=== PATIENT | female | born 1955 | race Asian ===

== ENCOUNTER 2017-03-19 06:07 | Inpatient (IN) | payer OTHER ==
[~2017-03-19] VITALS: Ht 170.2 cm; Wt 74.8 kg
[~2017-03-19 06:07] MED LIST: ASPI-605 PO; ATEN50TA PO; BLOO-668 IN; CALC600T12 PO; FISH12002 PO; GLYB5TAB7 PO; HYDR-3652 PO; IBUP200C5 PO; LISI10TA5 PO; METF850T2 PO; NPH,100V SQ; SIMV10TA6 PO; VITA150T PO
[2017-03-19] MEDS ORDERED: KETOROLAC TROMETHAMINE INJ 30 MG/ML VIAL ONE (06:46)
[2017-03-19] MEDS ORDERED: BACITRACIN 50000 UNITS/VIAL ONE (06:47)
[2017-03-19] MEDS ORDERED: BUPIVACAINE MPF 0.5% W/EPI INJ 30 ML VIAL ONE (06:47)
[2017-03-19] MEDS ORDERED: IV LR 1000 ML 1,000 ML ONE ×2 (06:54→10:01)
[2017-03-19] MEDS ORDERED: NEEDLELESS EST SET LARGE BORE 1 EA INFUS.SET MC ONE (06:55)
[2017-03-19] MEDS ORDERED: SECONDARY IV SET 1 EA INFUS.SET MC ONE ×2 (06:55→14:40)
[2017-03-19] MEDS ORDERED: CEFAZOLIN SODIUM/DEXTROSE,ISO 50 ML IV ONE (06:55)
[2017-03-19] MEDS ORDERED: IV SET PRIMARY 1 EA INFUS.SET MC ONE (06:55)
[2017-03-19] MEDS ORDERED: TRANEXAMIC ACID 3,000 MG in SODIUM CHLORIDE IRRIG SOLUTION 70 ML IR ONE (07:30)
[2017-03-19] MEDS ORDERED: MIDAZOLAM HCL 2 MG/2ML VIAL ONE (08:21)
[2017-03-19] MEDS ORDERED: SUCCINYLCHOLINE CHLORIDE 20 MG/ML VIAL ONE (08:21)
[2017-03-19] MEDS ORDERED: FENTANYL PF 100MCG/2ML AMPUL ONE ×2 (08:21→10:11)
[2017-03-19] MEDS ORDERED: VECURONIUM 10 MG VIAL ONE (08:21)
[2017-03-19 08:33] VITALS: BP 131/72
[2017-03-19] MEDS ORDERED: HYDROMORPHONE INJ 2 MG/ML DISP.SYRIN ONE (09:49)
--- NOTE | 2017-03-19 10:45 | NUR ---
RN OPENING NOTES RECEIVED PATIENT ARRIVED IN [facility] FROM OPERATION ROOM. HEAD OF BED ELEVATED, NO SOB OR DISTRESS NOTED. ALERT AND ORIENTED TIMES 4, VERBALLY RESPONSIVE AND AND ABLE TO MAKE NEEDS KNOWN. IV INTACT AND PATENT. KEPT PATIENT CLEAN AND COMFORTABLE IN BED, CALL LIGHT WITHIN PATIENT REACH. WILL CONTINUE TO MONITOR ACCORDINGLY
[2017-03-19] MEDS ORDERED: BISACODYL SUPP (10 MG) 10 MG/SUPP.RECT SUPP.RECT RC PRN (11:30)
[2017-03-19] MEDS ORDERED: ZOLPIDEM TARTRATE 5 MG TABLET PO PRN (11:30)
[2017-03-19] MEDS ORDERED: SENNOSIDES 8.6 MG TABLET PO PRN (11:30)
[2017-03-19] MEDS ORDERED: ONDANSETRON HCL/PF 4 MG/2 ML VIAL IV PRN (11:30)
[2017-03-19] MEDS ORDERED: MORPHINE SULFATE INJ 2 MG/ML DISP.SYRIN IV PRN (11:30)
[2017-03-19] MEDS: HYDROCODONE/APAP 5/325MG 1 EACH TABLET PO PRN (11:36)
[2017-03-19] MEDS ORDERED: IV SET PRIMARY PUMP SET 1 EA INFUS.SET MC ONE ×2 (14:47→16:23)
[2017-03-19 14:56] LABS: EOSINOPHILS % (AUTO) 0.1 % (0.0-6.0); HEMATOCRIT 36 % (33-45); HEMOGLOBIN 11.8 g/dL (11.5-14.8); LYMPHOCYTES # (AUTO) 0.6 /CMM (0.8-4.8); LYMPHOCYTES % (AUTO) 4.9 % (20.0-44.0); MEAN CORPUSCULAR HEMOGLOBIN 27 PG (26.0-33.0); MEAN CORPUSCULAR HGB CONC 33 g/dl (31.0-36.0); MEAN CORPUSCULAR VOLUME 82 fL (82-100); MONOCYTES # (AUTO) 0.2 /CMM (0.1-1.30); MONOCYTES % (AUTO) 1.9 % (2.0-12.0); NEUTROPHILS # (AUTO) 11.6 /CMM (1.8-8.9); NEUTROPHILS % (AUTO) 93.1 % (43.0-81.0); PLATELET COUNT (AUTO) 243 /CMM (150-450); RDW COEFFICIENT OF VARIATION 14.2 (11.5-15.0); RED BLOOD CELL COUNT(AUTO) 4.41 MIL/uL (4.0-5.2); WHITE BLOOD COUNT (AUTO) 12.5 K/uL (4.3-11.0)
[2017-03-19] MEDS: ANCEF 1 GM/50 ML D5W IV SCH ×4 (15:08→23:03)
[2017-03-19 16:00] VITALS: BP 106/56
[2017-03-19] MEDS ORDERED: ACET-907 PO (16:17)
[2017-03-19] MEDS: RIVAROXABAN 10 MG TABLET PO SCH (16:37)
[2017-03-19] MEDS: IV LR 1000 ML 1,000 ML IV PRN (16:38)
[2017-03-19] MEDS: BLOOD SUGAR DIAGNOSTIC 1 EACH STRIP IN SCH ×3 (18:50→22:49)
[2017-03-19] MEDS ORDERED: HYDROCODONE/APAP 5/325MG 1 EACH TABLET PO PRN (19:00)
--- NOTE | 2017-03-19 19:00 | NUR ---
MS RN OPENING NOTES RECEIVED PATIENT IN BED, AWAKE/O X 4, IV SITE INTACT WITH NO S/S OF INFILTRATION NOTED. NO S/S OF BLEEDING NOTED. NO S/S OF DISTRESS, NO CHEST PAIN IN STABLE CONDITION. KEPT CLEAN DRY AND COMFORTABLE. SAFE HAZARD FREE ENVIRONMENT PROVIDED. WILL CONTINUE TO MONITOR PATIENT.
--- NOTE | 2017-03-19 19:27 | NUR ---
RN CLOSING NOTES ALL NEEDS PROVIDED ATTENDED AND ANTICIPATED.KEPT PATIENT CLEAN AND COMFORTABLE IN BED, CALL LIGHT WITHIN PATIENT REACH, WILL CONTINUE TO MONITOR ACCORDINGLY. ENDORSED TO NEXT SHIFT RN TO CONTINUE CARE.
[2017-03-19 20:00] VITALS: BP 118/55
[2017-03-19] MEDS: CALCIUM CARB 600MG /VIT D 1 EACH TABLET PO SCH (21:14)
[2017-03-19] MEDS: glyBURIDE 5 MG TABLET PO SCH (21:14)
[2017-03-19] MEDS ORDERED: INSULIN REGULAR, HUMAN 100 UNIT/ML 10 ML VIAL ONE (22:53)
[2017-03-19] MEDS ORDERED: DEXTROSE 50%-WATER 50 ML DISP.SYRIN IV PRN (23:00)
--- NOTE | 2017-03-19 23:00 | NUR ---
MS RN NOTES 03/19/17: NOT TAKEN DUPLICATE ORDER ACCUCHECK BLOOD SUGAR AT 2300 PER MD, BLOOD SUGAR WAS TAKEN 2134
[2017-03-19] MEDS: INSULIN REGULAR, HUMAN 100 UNIT/ML 3 ML VIAL SQ PRN (23:02)
--- NOTE | 2017-03-20 01:49 | NUR ---
BLOOD SUGAR WAS TAKEN 2133 AT 03/19/17 295MG/DL NO ORDERS OF INSULIN PLACED A CALL TO DR. BRYSON TO CLARIFY IF I COULD GIVE INSULIN R AT 2250 AND ORDERED MILD SLIDING SCALE NOTED AND CARRIED OUT GAVE 6 UNITS OF REGULAR INSULIN PER PROTOCOL AT 2302 TOLERATED WELL. WILL CONTINUE TO MONITOR
[2017-03-20] MEDS: HYDROCODONE/APAP 5/325MG 1 EACH TABLET PO PRN ×4 (04:43→20:51)
[2017-03-20] MEDS: IV LR 1000 ML 1,000 ML IV PRN ×2 (05:13→22:00)
[2017-03-20] MEDS: BLOOD SUGAR DIAGNOSTIC 1 EACH STRIP IN SCH ×5 (05:31→21:57)
[2017-03-20] MEDS: INSULIN REGULAR, HUMAN 100 UNIT/ML 3 ML VIAL SQ PRN ×3 (05:35→22:02)
--- NOTE | 2017-03-20 05:56 | NUR ---
BLOOD SUGAR TAKEN AT 0531 RESULT WAS 172 MG/DL 3 UNITS REGULAR INSULIN WAS GIVEN.
--- NOTE | 2017-03-20 06:30 | NUR ---
MS RN CLOSING NOTES IN BED ASLEEP AND EASILY AWAKEN, SEMI FOWLERS POSITION, SKIN WARM AND DRY TO TOUCH, AFEBRILE, ON O2LPM VIA NC 02 SAT 98% ALL NURSING CARE NEEDS PROVIDED AND RENDERED, NEEDS ATTENDED AND ANTICIPATED, KEPT CLEAN AND DRY AND COMFORTABLE, BLADDER NOT DISTENDED, ON FC DRAINING YELLOW VIA GRAVITY WITH NO SEDIMENTS NO HEMATURIA NO CLOUDINESS. CONTINUE WITH CURRENT MEDICATION ORDERED, NO LATE ADVERSE REACTION NOTED/REPORTED. COOPERATIVE TO HER PLAN OF CARE. SAFE HAZARD FREE ENVIRONMENT MAINTAINED. ASSISTED REPOSITIONED EVERY 2 HOURS FOR SKIN MANAGEMENT AND COMFORT. GOOD SKIN CARE PROVIDED. ALL DUE MEDS WAS GIVEN. KEPT AT LOW BED. FREQUENT VISUAL CHECK FOR SAFETY. PLAN OF CARE ORDERED. CALL LIGHT ATTENDED PROMPTLY AND KEPT AT EASY REACH. WILL ENDORSE TO THE NEXT SHIFT CONTINUE PLAN OF CARE. VS STABLE . IN STABLE CONDITION, NO S/S OF HYPO/HYPERGLYCEMIA.
[2017-03-20 07:00] LABS: HEMATOCRIT 33 % (33-45); HEMOGLOBIN 11.1 g/dL (11.5-14.8); MEAN CORPUSCULAR HEMOGLOBIN 27 PG (26.0-33.0); MEAN CORPUSCULAR HGB CONC 33 g/dl (31.0-36.0); MEAN CORPUSCULAR VOLUME 82 fL (82-100); PLATELET COUNT (AUTO) 237 /CMM (150-450); RED BLOOD CELL COUNT(AUTO) 4.06 MIL/uL (4.0-5.2); WHITE BLOOD COUNT (AUTO) 10.1 K/uL (4.3-11.0)
--- NOTE | 2017-03-20 07:15 | NUR ---
MS/RN AM NOTES RECEIVED PATIENT IN BED, AWAKE, ALERT, NO SOB, ON RA SATURATING WELL, C/O LEFT HIP PAIN 01/17, PAIN MEDICATION PRN ADMINISTERED 04:43, WILL CONTINUE TO MONITOR. IV LINE ON RIGHT HAND INTACT, PATENT. F/C INTACT, WITH CLEAR YELLOW URINE, NO SEDIMENTS, DENIES ANY DISCOMFORT. HOB ELEVATED, BED IN LOW POSITION, 2 SR UP FOR SAFETY. WILL CONTINUE TO MONITOR ACCORDINGLY.
[2017-03-20 08:00] VITALS: BP 117/67
[2017-03-20] MEDS: CALCIUM CARB 600MG /VIT D 1 EACH TABLET PO SCH ×2 (08:49→17:14)
[2017-03-20] MEDS: METFORMIN 850 MG TABLET PO SCH ×2 (08:50→17:16)
[2017-03-20] MEDS: glyBURIDE 5 MG TABLET PO SCH ×2 (08:50→17:14)
[2017-03-20] MEDS: VITAMIN B COMP W-C 1 TAB TABLET PO SCH (08:50)
[2017-03-20] MEDS: ATENOLOL 50 MG TABLET PO SCH (08:50)
[2017-03-20] MEDS: INSULIN NPH, HUMAN ISOPHANE 100 UNIT/ML CARTRIDGE SQ SCH ×2 (08:54→17:18)
[2017-03-20] MEDS ORDERED: Medication Not On Formulary EA (Fish Oil/Borage/Flax/Om3,6,9#1 (Omega 3-6-9 1,200 mg Sof PO SCH (09:00)
--- NOTE | 2017-03-20 09:45 | NUR ---
MS/RN NOTES DR. HAYNES VISITED, EXAMINED PATIENT, WITH ORDER TO CHANGE NORCO 5/325 MG PO Q4H PRN FOR BETTER PAIN CONTROL, PER PATIENT'S REQUEST. NOTED, CARRIED OUT.
[2017-03-20 10:00] VITALS: BP 117/67
--- NOTE | 2017-03-20 12:14 | NUR ---
MS/RN NOTES BLOOD SUGAR CHECKED, READING 250, REGULAR INSULIN 4 UNITS GIVEN SG PER SLIDING SCALE, NO CHANGES IN APPETITE
[2017-03-20 16:00] VITALS: BP 147/75
[2017-03-20] MEDS: LISINOPRIL (10MG) 10 MG TABLET PO SCH (17:14)
[2017-03-20] MEDS: SIMVASTATIN 10 MG TABLET PO SCH (17:15)
[2017-03-20] MEDS: RIVAROXABAN 10 MG TABLET PO SCH (17:15)
[2017-03-20] MEDS: DOCUSATE SODIUM 250 MG CAPSULE PO PRN (17:28)
--- NOTE | 2017-03-20 18:14 | NUR ---
MS/RN NOTES BLOOD SUGAR CHECKED BEFORE DINNER, READING 114, NO COVERAGE PER SLIDING SCALE GIVEN. ADMINISTERED NPH INSULIN ORDERED, NO CHANGES IN APPETITE, DINNER TOLERATED WELL
--- NOTE | 2017-03-20 19:16 | NUR ---
MS/RN CLOSING NOTES PATIENT IS IN THE BED, UP WALKING TOLERATED, NO SOB, NO DISTRESS, OXYGEN INTACT DELIVERING 2L/M VIA N/C SATURATING WELL. LEFT HIP PAIN MANAGED WITH PRN NORCO, TOLERATED WELL, COLACE ADMINISTERED FOR BOWEL MANAGEMENT. F/C INTACT, WITH YELLOW, CLEAR URINE, WITHOUT SEDIMENTS, 1200 OUTPUT THROUGHOUT THE SHIFT. IV LINE ON RIGHT HAND INTACT, PATENT. NO S/SX HYPO OR HYPERGLYCEMIA NOTED. KEPT CLEAN, DRY COMFORTABLE. SENIOR MANAGER CREATIVE SERVICES FROM [facility] VISITED DISCUSSED ABOUT REHAB PLACEMENT POST DISCHARGE. NEEDS MET IN TIMELY MANNER WITH CALL LIGHT WITHIN EASY REACH ALL THE TIME. WILL ENDORSE TO THE HEDIS REVIEW NURSE NURSE ACCORDINGLY FOR JOSIE
[2017-03-20 20:00] VITALS: BP 127/71
--- NOTE | 2017-03-20 20:00 | NUR ---
RECEIVED PATIENT IN BED, ALERT AND ORIENTED X4, CALM, NO SOB, NO RESPIRATORY DISTRESS, PAIN AT THIS TIME IS TOLERATED AT 4/10, S/P LEFT HIP TOTAL ARTHROPLASTY, ABDOMEN SOFT AND NON-TENDER, RIGHT HAND PERIPHERAL LINE IS PATENT AND INFUSING WELL, COMPLAINING OF CONSTIPATION, WILL PROVIDE SENNA AT BEDTIME, KEPT SAFE AND COMFORTABLE, CALL LIGHT WITHIN REACH.
[2017-03-20 22:00] VITALS: BP 127/71
[2017-03-21] MEDS: HYDROCODONE/APAP 5/325MG 1 EACH TABLET PO PRN ×3 (04:44→13:29)
[2017-03-21] MEDS: BLOOD SUGAR DIAGNOSTIC 1 EACH STRIP IN SCH ×4 (06:30→22:22)
[2017-03-21] MEDS: METFORMIN 850 MG TABLET PO SCH ×2 (06:35→17:38)
[2017-03-21] MEDS: INSULIN REGULAR, HUMAN 100 UNIT/ML 3 ML VIAL SQ PRN ×3 (06:37→17:49)
--- NOTE | 2017-03-21 06:58 | NUR ---
PATIENT IS AWAKE AND ALERT, NO RESPIRATORY DISTRESS, PROVIDED PAIN MEDICATION DURING SHIFT, SLEPT FOR 6 HOURS, DRESSING IS INTACT, NO ADVERSE CHANGE OF CONDITION DURING SHIFT, NEEDS ATTENDED, CALL LIGHT WITHIN REACH
--- NOTE | 2017-03-21 07:05 | NUR ---
MS/RN AM NOTES PATIENT IS IN BED, AWAKE, ALERT, NO SOB, ON RA SATURATING WELL, DENIES PAIN . RESTING COMFORTABLY. IV LINE ON RIGHT HAND INTACT, PATENT. F/C INTACT, WITH CLEAR YELLOW URINE, NO SEDIMENTS, DENIES ANY DISCOMFORT. HOB ELEVATED, BED IN LOW POSITION, 2 SR UP FOR SAFETY. WILL CONTINUE TO MONITOR ACCORDINGLY
[2017-03-21 07:56] LABS: BASOPHILS % (AUTO) 0.3 % (0.0-2.0); EOSINOPHILS # (AUTO) 0.1 /CMM (0.0-0.7); EOSINOPHILS % (AUTO) 0.6 % (0.0-6.0); HEMATOCRIT 32 % (33-45); HEMOGLOBIN 10.7 g/dL (11.5-14.8); LYMPHOCYTES # (AUTO) 1.5 /CMM (0.8-4.8); LYMPHOCYTES % (AUTO) 14.1 % (20.0-44.0); MEAN CORPUSCULAR HEMOGLOBIN 27 PG (26.0-33.0); MEAN CORPUSCULAR HGB CONC 33 g/dl (31.0-36.0); MEAN CORPUSCULAR VOLUME 81 fL (82-100); MONOCYTES # (AUTO) 0.7 /CMM (0.1-1.30); MONOCYTES % (AUTO) 6.8 % (2.0-12.0); NEUTROPHILS # (AUTO) 8.3 /CMM (1.8-8.9); NEUTROPHILS % (AUTO) 78.2 % (43.0-81.0); PLATELET COUNT (AUTO) 217 /CMM (150-450); RDW COEFFICIENT OF VARIATION 13.9 (11.5-15.0); RED BLOOD CELL COUNT(AUTO) 3.98 MIL/uL (4.0-5.2); WHITE BLOOD COUNT (AUTO) 10.6 K/uL (4.3-11.0)
[2017-03-21 08:00] VITALS: BP 142/76
[2017-03-21 08:19] LABS: CALCIUM, SERUM 8.9 mg/dL (8.5-10.1); CREATININE 0.7 mg/dL (0.6-1.3); POTASSIUM 3.9 mmol/L (3.5-5.1)
[2017-03-21] MEDS: DOCUSATE SODIUM 250 MG CAPSULE PO PRN (09:04)
[2017-03-21] MEDS: VITAMIN B COMP W-C 1 TAB TABLET PO SCH (09:04)
[2017-03-21] MEDS: ATENOLOL 50 MG TABLET PO SCH (09:04)
[2017-03-21] MEDS: CALCIUM CARB 600MG /VIT D 1 EACH TABLET PO SCH ×2 (09:06→17:44)
[2017-03-21] MEDS: glyBURIDE 5 MG TABLET PO SCH ×2 (09:06→17:45)
[2017-03-21] MEDS: INSULIN NPH, HUMAN ISOPHANE 100 UNIT/ML CARTRIDGE SQ SCH ×2 (09:09→17:46)
[2017-03-21 10:00] VITALS: BP 142/76
--- NOTE | 2017-03-21 11:00 | NUR ---
MS/RN NOTES OSORIO CATHETER REMOVED ORDERED FROM MD, TOLERATED WELL, NO DISCOMFORT NOTED, WILL CONTINUE TO MONITOR URINE OUTPUT CLOSELY
--- NOTE | 2017-03-21 15:05 | NUR ---
MS/RN NOTED PER PATIENT'S REQUEST ASKED FORM DR. GILLIAN STAUFFER TO D/C IV FLUIDS, ORDER RECEIVED. REMOVED IV PERIPHERAL LINE. PATIENT IS WELL HYDRATED, DRINKING FLUIDS AND TOLERATING WELL, WITH GOOD URINE OUTPUT. X1 LARGE BOWEL MOVEMENT NOTED
[2017-03-21 16:00] VITALS: BP 131/67
[2017-03-21] MEDS: SIMVASTATIN 10 MG TABLET PO SCH (17:45)
[2017-03-21] MEDS: LISINOPRIL (10MG) 10 MG TABLET PO SCH (17:45)
[2017-03-21] MEDS: RIVAROXABAN 10 MG TABLET PO SCH (17:46)
--- NOTE | 2017-03-21 19:46 | NUR ---
MS/RN OPENING NOTES PATIENT IN BED, AWAKE, ALERT X4. ABLE TO VERBALIZED NEEDS. OBSERVE ABLE TO AMBULATE W/ ASSISTANCE W/ WALKER AND REQUESTED FOR BED SIDEW COMMODE FOR THE NIGHT. FOR MONITORING FOR PAIN AND WILL CONTINUE CARE. NO MORE IV PATIENT INFORMED ABLE TO DRINKL FLUIDSW/O DIFFICULTY.MD MADE AWARE. CALL LIGHTS WITHIN REACH.
[2017-03-21 20:00] VITALS: BP 148/74
[2017-03-22] MEDS: HYDROCODONE/APAP 5/325MG 1 EACH TABLET PO PRN ×3 (05:31→21:02)
--- NOTE | 2017-03-22 05:36 | NUR ---
MS/RN NOTES PATIENTS AWAKE, REPORTED PAIN LEVEL 6/10ON LEFT HIP. NORCO 5-325 MG PO TAB GIVEN. INFORMED NURSE I TABLET PO NORCO IS EFFECTIVE. WILL F/U TO ENDORSE W/ AM RN FOR ORDER OF PAIN MED PREFERED BY PATIENT PAIN IS NOW TOLERABLE.
[2017-03-22] MEDS: BLOOD SUGAR DIAGNOSTIC 1 EACH STRIP IN SCH ×4 (06:25→21:39)
[2017-03-22] MEDS: METFORMIN 850 MG TABLET PO SCH ×2 (06:35→17:27)
[2017-03-22] MEDS: INSULIN REGULAR, HUMAN 100 UNIT/ML 3 ML VIAL SQ PRN ×4 (06:36→21:41)
--- NOTE | 2017-03-22 06:51 | NUR ---
MS/RN CLOSING NOTES PATIENT AWAKE, ALERT X4. NO S/S OF SOB OR DISTRESS. VERBALIZE NEEDS. ASSISTED WITH WOUND DRESSING ON LEFT HIP AND AGREED FOR PHOTO TO BE TAKE. COOPERATIVE TO CARE. BLOOD SUGAR CHECK AT 140, PO MEDS GIVEN FOR DM. INSULIN COVERAGE AT 2 UNITS. PATIENT ABLE TO EAT A BANANA.PAIN MANAGED AND CONTROLLED. WILL ENDORSE TO AM RN FOR CONTINUITY OF CARE. PATIENT DISCUSSED DISCHARGE PLAN. WILL ENDORSE TO AM RN.
[2017-03-22 07:38] LABS: BASOPHILS % (AUTO) 0.2 % (0.0-2.0); EOSINOPHILS # (AUTO) 0.1 /CMM (0.0-0.7); EOSINOPHILS % (AUTO) 1.1 % (0.0-6.0); HEMATOCRIT 35 % (33-45); HEMOGLOBIN 11.9 g/dL (11.5-14.8); LYMPHOCYTES # (AUTO) 1.6 /CMM (0.8-4.8); LYMPHOCYTES % (AUTO) 17.5 % (20.0-44.0); MEAN CORPUSCULAR HEMOGLOBIN 28 PG (26.0-33.0); MEAN CORPUSCULAR HGB CONC 34 g/dl (31.0-36.0); MEAN CORPUSCULAR VOLUME 82 fL (82-100); MONOCYTES # (AUTO) 0.7 /CMM (0.1-1.30); MONOCYTES % (AUTO) 7.7 % (2.0-12.0); NEUTROPHILS # (AUTO) 6.9 /CMM (1.8-8.9); NEUTROPHILS % (AUTO) 73.5 % (43.0-81.0); PLATELET COUNT (AUTO) 248 /CMM (150-450); WHITE BLOOD COUNT (AUTO) 9.4 K/uL (4.3-11.0)
[2017-03-22 07:54] LABS: CALCIUM, SERUM 9.3 mg/dL (8.5-10.1); CREATININE 0.7 mg/dL (0.6-1.3)
--- NOTE | 2017-03-22 07:58 | NUR ---
AM RN NOTES RECEIVED PT IN STABLE CONDITION, AWAKE RESTING IN BED,NO SOB OR DISTRESS NOTED, NO PAIN AT THIS TIME, WILL MONITOR.
[2017-03-22 08:00] VITALS: BP 119/70
[2017-03-22] MEDS: CALCIUM CARB 600MG /VIT D 1 EACH TABLET PO SCH ×2 (08:40→16:34)
[2017-03-22] MEDS: VITAMIN B COMP W-C 1 TAB TABLET PO SCH (08:40)
[2017-03-22] MEDS: glyBURIDE 5 MG TABLET PO SCH ×2 (08:41→16:34)
[2017-03-22] MEDS: ATENOLOL 50 MG TABLET PO SCH (08:41)
[2017-03-22] MEDS: INSULIN NPH, HUMAN ISOPHANE 100 UNIT/ML CARTRIDGE SQ SCH ×2 (08:53→17:29)
--- NOTE | 2017-03-22 10:00 | NUR ---
PT HAS NO IV LINE, STATED THAT IT WAS REMOVED EARLIER, REFUSED TO PLACE NEW LINE, RISKS AND BENEFITS OF REFUSAL DISCUSSED WITH PT. KANDICE BINGHAM INFORMED.
[2017-03-22 16:00] VITALS: BP 123/87
[2017-03-22] MEDS: RIVAROXABAN 10 MG TABLET PO SCH (16:37)
[2017-03-22] MEDS: LISINOPRIL (10MG) 10 MG TABLET PO SCH (17:28)
[2017-03-22] MEDS: SIMVASTATIN 10 MG TABLET PO SCH (17:28)
--- NOTE | 2017-03-22 18:03 | NUR ---
PT IN STABLE CONDITION, NO PAIN NOTED, AWAKE, CONSUMED HER DINNER, WILL INDORSE TO NEXT SHIFT FOR JOSIE.
--- NOTE | 2017-03-22 19:30 | NUR ---
MS/RN OPENING NOTES PT AWAKE, A/OX4, ON ROOM AIR. NO S/S OF DISTRESS NOTED. DENIES PAIN AT THIS TIME. RESTING COMFORTABLY IN BED. PT CURRENTLY HAS NO IV SITE. MD AWARE. PT ENCOURAGED TO HAVE SNACKS THIS EVENING BEFORE BED TO PREVENT HYPOGLYCEMIA. BED IN LOW/LOCKED POSITION WITH CALL LIGHT IN REACH. BED RAILS UPX2. WILL CONTINUE TO MONITOR
[2017-03-22 20:00] VITALS: BP 124/69
--- NOTE | 2017-03-22 21:03 | NUR ---
MS/RN NOTES PT COMPLAINING OF PAIN 6/10 TO LEFT HIP. PER PATIENT'S REQUEST, ONLY WANTED 1 TAB OF NORCO 5-325. UNABLE TO SCAN ONLY 1 TAB IN THE EMAR. PT DID NOT WANT TO TAKE ORDERED NORCO 2 TABS. ONLY 1 TAB REMOVED FROM PYXIS. TERMITE INSPECTORCONCEPCION WALKER MADE AWARE
--- NOTE | 2017-03-22 21:41 | NUR ---
MS/RN NOTES BLOOD SUGAR=99. NO INSULIN ADMINISTRATION PER SLIDING SCALE. SNACKS PROVIDED AT BEDSIDE. WILL MONITOR FOR S/S OF HYPOGYLCEMIA
--- NOTE | 2017-03-23 02:00 | NUR ---
MS/RN NOTES PT ASLEEP, BREATHING EVEN AND UNLABORED. NO S/S OF DISTRESS NOTED. WILL CONTINUE TO MONITOR
[2017-03-23] MEDS: BLOOD SUGAR DIAGNOSTIC 1 EACH STRIP IN SCH ×4 (06:42→22:17)
[2017-03-23] MEDS: INSULIN REGULAR, HUMAN 100 UNIT/ML 3 ML VIAL SQ PRN ×4 (06:46→22:20)
--- NOTE | 2017-03-23 06:55 | NUR ---
MS/RN NOTES BLOOD SUGAR=76. NO INSULIN COVERAGE PER SLIDING SCALE. ENCOURAGED PT TO DRINK ORANGE JUICE Addendum: 03/23/17 at 07 by SY SHERMAN RN NON-ADMINISTERED SCHEDULED 0700 METFORMIN. ENDORSED TO AM SHIFT. MEDICATION RETURNED TO [facility]
--- NOTE | 2017-03-23 06:56 | NUR ---
MS/RN CLOSING NOTES PT AWAKE, A/OX3. ON ROOM AIR, NO SOB OR DISTRESS NOTED. BREATHING IS EVEN AND UNLABORED. NOTES PAIN TO BE 5/10 TO LEFT HIP BUT REFUSING PAIN MEDICATION AT THIS TIME. PT ABLE TO AMBULATE TO BATHROOM WITH WALKER AND STANDBY ASSISTANCE. PT REMAINS WITH NO IV SITE. BED IN LOW/LOCKED POSITION WITH CALL LIGHT IN REACH. BED RAILS UPX2. ALL NEEDS MET AND ATTENDED TO. MADE PT COMFORTABLE THROUGHOUT SHIFT. WILL ENDORSE TO AM SHIFT JOSIE.
[2017-03-23] MEDS: METFORMIN 850 MG TABLET PO SCH ×2 (07:00→17:03)
--- NOTE | 2017-03-23 07:33 | NUR ---
AM RN NOTES RECEIVED PT AWAKE, ALERT AND ORIENTED X4 RESTING IN BED COMFORTABLY, NO S/S OF HYPO OR HYPERGLYCEMIA, NO PAIN OR DISCOMFORT NOTED, WILL MONITOR.
[2017-03-23 08:00] VITALS: BP 136/79
[2017-03-23] MEDS: ACETAMINOPHEN 325 MG TABLET PO PRN (08:19)
[2017-03-23] MEDS: CALCIUM CARB 600MG /VIT D 1 EACH TABLET PO SCH ×2 (08:25→16:28)
[2017-03-23] MEDS: glyBURIDE 5 MG TABLET PO SCH ×2 (08:26→16:28)
[2017-03-23] MEDS: VITAMIN B COMP W-C 1 TAB TABLET PO SCH (08:26)
[2017-03-23] MEDS: ATENOLOL 50 MG TABLET PO SCH (08:26)
[2017-03-23] MEDS: INSULIN NPH, HUMAN ISOPHANE 100 UNIT/ML CARTRIDGE SQ SCH ×2 (08:30→17:11)
[2017-03-23] MEDS: HYDROCODONE/APAP 5/325MG 1 EACH TABLET PO PRN ×2 (15:05→19:33)
[2017-03-23 16:00] VITALS: BP 110/64
[2017-03-23] MEDS: RIVAROXABAN 10 MG TABLET PO SCH (16:29)
[2017-03-23] MEDS: SIMVASTATIN 10 MG TABLET PO SCH (17:03)
[2017-03-23] MEDS: LISINOPRIL (10MG) 10 MG TABLET PO SCH (17:03)
--- NOTE | 2017-03-23 18:15 | NUR ---
PT IN STABLE CONDITION, AMBULATED TO RESTROOM, SURGICAL SITE IS CLEAN AND DRY, NEW DRESSING APPLIED, NO BLEEDING OR REDNESS NOTED. NO S/S OR HYPO OR HYPERGLYCEMIA, WILL INDORSE PT TO NEXT SHIFT.
--- NOTE | 2017-03-23 19:35 | NUR ---
MS/RN OPENING NOTES PT AWAKE, SITTING IN THE CHAIR. ON ROOM AIR, NO SOB OR DISTRESS NOTED. NOTES PAIN TO BE 6/10 TO LEFT HIP AND REQUESTING NORCO. ADMINISTERED PRN. DRESSING TO LEFT HIP CLEAN DRY AND INTACT. ABLE TO AMBULATE WITH STANDBY ASSISTANCE AND WALKER. BED IN LOW/LOCKED POSITION WILL CALL LIGHT IN REACH. SNACKS AT BEDSIDE. WILL CONTINUE TO MONITOR
[2017-03-23 20:00] VITALS: BP 121/64
[2017-03-24] MEDS: HYDROCODONE/APAP 5/325MG 1 EACH TABLET PO PRN ×2 (03:30→08:19)
--- NOTE | 2017-03-24 03:31 | NUR ---
MS/RN NOTES PT COMPLAINING OF PAIN TO LEFT HIP 04/19. ADMINISTERED PRN NORCO 5-325 ORDERED. WILL MONITOR FOR EFFECTIVENESS
[2017-03-24] MEDS: BLOOD SUGAR DIAGNOSTIC 1 EACH STRIP IN SCH ×3 (06:32→18:24)
[2017-03-24] MEDS: INSULIN REGULAR, HUMAN 100 UNIT/ML 3 ML VIAL SQ PRN ×3 (06:34→18:26)
--- NOTE | 2017-03-24 06:39 | NUR ---
MS/RN NOTES BLOOD [id number], ADMINISTERED 3 UNITS INSULIN PER SLIDING SCALE. SNACKS AT BEDSIDE.
--- NOTE | 2017-03-24 06:43 | NUR ---
MS/RN CLOSING NOTES PT AWAKE, SITTING IN THE CHAIR. ON ROOM AIR, BREATHING EVEN AND UNLABORED. NO S/S OF DISTRESS. DRESSING TO LEFT HIP C/D/I. AMBULATED TO RESTROOM THIS AM WITH WALKER AND STANDBY ASSISTANCE. ALL NEEDS MET AND ATTENDED TO. MADE PT COMFORTABLE POSSIBLE THROUGHOUT SHIFT. NO CHANGES OVERNIGHT. BED IN LOW/LOCKED POSITION, CALL LIGHT WITHIN REACH. WILL ENDORSE TO AM SHIFT JOSIE.
[2017-03-24 07:03] LABS: BASOPHILS % (AUTO) 0.3 % (0.0-2.0); EOSINOPHILS # (AUTO) 0.2 /CMM (0.0-0.7); EOSINOPHILS % (AUTO) 3.5 % (0.0-6.0); HEMATOCRIT 37 % (33-45); HEMOGLOBIN 12.1 g/dL (11.5-14.8); LYMPHOCYTES # (AUTO) 2.2 /CMM (0.8-4.8); MEAN CORPUSCULAR HEMOGLOBIN 27 PG (26.0-33.0); MEAN CORPUSCULAR HGB CONC 33 g/dl (31.0-36.0); MEAN CORPUSCULAR VOLUME 82 fL (82-100); MONOCYTES # (AUTO) 0.6 /CMM (0.1-1.30); MONOCYTES % (AUTO) 8.9 % (2.0-12.0); NEUTROPHILS # (AUTO) 3.9 /CMM (1.8-8.9); NEUTROPHILS % (AUTO) 55.3 % (43.0-81.0); PLATELET COUNT (AUTO) 302 /CMM (150-450); RDW COEFFICIENT OF VARIATION 14.3 (11.5-15.0); RED BLOOD CELL COUNT(AUTO) 4.51 MIL/uL (4.0-5.2)
[2017-03-24 07:21] LABS: CALCIUM, SERUM 9.3 mg/dL (8.5-10.1); CREATININE 0.7 mg/dL (0.6-1.3); MAGNESIUM 1.8 mg/dL (1.8-2.4)
[2017-03-24] MEDS: METFORMIN 850 MG TABLET PO SCH ×2 (07:32→18:29)
[2017-03-24 08:00] VITALS: BP 121/73
--- NOTE | 2017-03-24 08:00 | NUR ---
MS RN NOTES PT IS A/OX4. PT STATED SHE HAS 6/10 PAIN IN LEFT HIP AND WOULD LIKE HER PRN NORCO. NO SOB OR S/S OF DISTRESS NOTED. PT STILL REFUSING IV ACCESS AT THIS TIME. CALL LIGHT IS WITHIN REACH. BED IS IN LOW LOCKED POSITION. PAIN MANAGEMENT WILL BE PROVIDED. WILL CONTINUE TO MONITOR THROUGHOUT SHIFT.
[2017-03-24] MEDS: glyBURIDE 5 MG TABLET PO SCH ×2 (08:21→16:32)
[2017-03-24] MEDS: CALCIUM CARB 600MG /VIT D 1 EACH TABLET PO SCH ×2 (08:21→16:32)
[2017-03-24] MEDS: VITAMIN B COMP W-C 1 TAB TABLET PO SCH (08:21)
[2017-03-24] MEDS: ATENOLOL 50 MG TABLET PO SCH (08:22)
[2017-03-24] MEDS: INSULIN NPH, HUMAN ISOPHANE 100 UNIT/ML CARTRIDGE SQ SCH ×2 (08:26→18:25)
[2017-03-24] MEDS ORDERED: RIVA10TA PO (14:20)
[2017-03-24 16:00] VITALS: BP 127/64
[2017-03-24] MEDS: ACETAMINOPHEN 325 MG TABLET PO PRN (16:32)
[2017-03-24] MEDS: RIVAROXABAN 10 MG TABLET PO SCH (16:32)
[2017-03-24] MEDS: LISINOPRIL (10MG) 10 MG TABLET PO SCH (18:24)
[2017-03-24] MEDS: SIMVASTATIN 10 MG TABLET PO SCH (18:24)
--- NOTE | 2017-03-24 18:56 | NUR ---
MS RN NOTES PT IS CURRENTLY A/OX4. IN BED WATCHING TV. PATIENT DENIES PAIN AT THIS TIME. NO SOB OR ANY S/S OF DISTRESS NOTED. PT HAS NO IV ACCESS. PT AWARE OF RISKS AND STILL REFUSING. PT WILL BE DISCHARGED LATER TODAY TO [facility]. BED IS IN LOW LOCKED POSITION. CALL LIGHT WITHIN REACH. WILL ENDORSE CARE AND DISCHARGE INSTRUCTIONS TO PM SHIFT.
--- NOTE | 2017-03-24 19:15 | NUR ---
RN OPEN NOTES RECEIVED PATIENT AWAKE IN BED. A/O X4. NO SIGNS OF DISTRESS OR DISCOMFORT. BREATHING EVEN AND UNLABORED. PATIENT AWAITING DISCHARGE TO [facility], PER AM RN SOFTWARE INSTALLATION ENGINEER SCHEDULED FOR 1999. PATIENT DOES NOT HAVE IV ACCESS AT THIS TIME, MD AWARE. BED IN LOW LOCKED POSITION WITH SIDE RAILS X2. CALL LIGHT WITHIN REACH. WILL CONTINUE TO MONITOR.
--- NOTE | 2017-03-24 19:35 | NUR ---
RN NOTES REPORT GIVEN TO TEE AT [facility].
[2017-03-24 20:00] VITALS: BP 122/59
--- NOTE | 2017-03-24 21:34 | NUR ---
RN CLOSING NOTES PATIENT DISCHARGE TO [facility] VIA EMT. PATIENT IN STABLE CONDITION. NO SIGNS OF DISTRESS OR DISCOMFORT. BREATHING EVEN AND UNLABORED. VSS. PATIENT VERBALIZE UNDERSTANDING OF DISCHARGE INSTRUCTIONS. ALL PAPERWORK COMPLETE AND SIGNED. Addendum: 03/24/17 at 2514 by MITZY REYES RN PATIENT D/C FROM UNIT AT 2044
== END 2017-03-24 20:50 | DRG 470 ==
LOC: DS 06:07 → MED 07:58
PROVIDERS: ADMIT Specialist
PROC: 0SRB01Z Replacement of Left Hip Joint with Metal Synthetic Substitute, Open Approach (ICD-10-PCS; principal; 2017-03-19 08:55)
DX: M16.12 Unilateral primary osteoarthritis, left hip (principal); D62 Acute posthemorrhagic anemia; I10 Essential (primary) hypertension; E11.9 Type 2 diabetes mellitus without complications; E78.5 Hyperlipidemia, unspecified; Z96.652 Presence of left artificial knee joint; D72.829 Elevated white blood cell count, unspecified
CPT/HCPCS: 36415; 71010-TC; 80048-TC; 82962-TC; 83735-TC; 85025-TC; 85027-TC; 86850-TC; 86921-TC; 87081-TC; 88305-TC; 88311-TC; 97001-TC; 97110-TC; 97116-TC; 97530-TC; A4217; A6209; A6402; J0330; J0690; J1100; J1170; J1815; J1885; J2250; J2270; J2405; J2704; J2710; J3010; J3490; J7060; J7120